=== PATIENT | female | born 1990 | race Caucasian/White ===

== ENCOUNTER → 2016-11-23 | Outpatient (CLI) | payer BC ==
[2016-11-23 14:45] LABS: Basophils # (A) 0.1 k/uL (0-0.2); Basophils % (A) 1 %; CH 29.2; Eosinophils # (A) 0.3 k/uL (0-0.7); Eosinophils % (A) 5 %; HCT 42.9 % (34.0-46.0); HDW 2.61; HGB 14.2 gm/dL (11.4-16.0); Luc # (Auto) 0.11; Luc % (Auto) 2; Lymphocytes # (A) 2.9 k/uL (1.0-4.8); Lymphocytes % (A) 45 %; MCH 29.4 pg (25.0-35.0); MCHC 33.1 g/dL (31.0-37.0); MCV 88.9 fL (80.0-100.0); Monocytes # (A) 0.4 k/uL (0-1.0); Monocytes % (A) 6 %; Neutrophils # (A) 2.8 k/uL (1.3-7.7); Neutrophils % (A) 43 %; RBC 4.82 m/uL (3.80-5.40); RDW 12.6 % (11.5-15.5); WBC 6.5 k/uL (3.8-10.6); WBC (Perox) 6.96
== END | disposition home or self-care (01) ==
LOC: LABPAT 14:06
PROVIDERS: ATTEND Obstetrics & Gynecology
DX: Z01.812 Encounter for preprocedural laboratory examination (principal); N84.0 Polyp of corpus uteri
CPT/HCPCS: 85025

== ENCOUNTER 2016-11-29 09:14 | Day surgery (SDC) | payer BC ==
[2016-11-28 10:28] VITALS: BMI 38.9
--- NOTE | 2016-11-28 12:33 | HP ---
This is a 25 -year-old white female 2, para 1, 0, 1, 1 who received her last Depo Provera injection in May of this year. The patient and her are wishing conception at this time. She states that she has had continued vaginal bleeding and spotting every day since May. She states there is no pelvic cramping. No dyspareunia. No other issues or symptoms. She is on the vitamin daily. Sonogram was performed at the office, at which time, endometrial polyps were noted. Ovaries appeared sonographically within normal limits. They did contain multiple small cystic areas consistent with PCOF. At this time, the patient is wishing hysteroscopy, D&C, polypectomy to clear the uterine cavity in preparation for conception. Current medications: Zoloft 50 mg daily. Review of systems is otherwise negative. Past medical history is significant for polycystic ovarian syndrome, history of IUFD of twins in March 2016 and abnormal PAP smear evaluated colposcopically. Past surgical history: Colposcopy in 2012. Finger surgery of the index finger for a benign growth. FAMILY HISTORY: Significant for heart issues, hypertension, diabetes, prostate cancer. 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 She is . She smokes three quarter packs of tobacco daily. The patient denies alcohol or drug use. Reproductive history: Vaginal delivery 2011, live born female infant; IUFD twins at 19 weeks gestation, March 2016. On examination, this is a pleasant young female, she is 5 foot 3 inches, 223 pounds, BMI 39.5. Blood pressure 112/64. HEENT: exam reveals no thyromegaly. Good range of motion. Normal dentition. The breasts are bilaterally symmetric to inspection, no skin dimpling, nipple discharge or axillary adenopathy or discernible lesions or masses. Chest is clear to auscultation in all damian anterior and posterior. The cardiac exam reveals regular rate and rhythm with no murmur, click or rub. The abdomen is soft, moderately obese, no organosplenomegaly or masses. No CVA tenderness. Extremities reveals normal range of motion. Good peripheral pulses. On pelvic exam reveals normal appearing external genitalia. Cervix is multiparous. Pap smear is up to date and normal. Uterus is mobile, slightly enlarged, anteverted, slightly tender. Adnexa are negative bilaterally. IMPRESSION: Sonographic evidence of endometrial polyps with polymenorrhea since last Depo Provera injection, May 2016. PLAN: We will proceed with hysteroscopy, D&C, polypectomy. The patient is aware of the risks, benefits and alternatives of this plan. We have discussed the risks to be but not be exclusive of bleeding, infection, perforation, or damage to the cervix, uterus, bladder or bowel. The risks of anesthesia are also reviewed including aspiration, nerve damage or even . The patient understands and accepts these risks as outlined. OLEKSANDR
[~2016-11-29 09:14] MED LIST: DEXAMETHASONE SOD PHOSPHATE 10 MG/ML 1 ML VIAL IV ONE; HYDROmorphone 1 MG/ML 1 ML SYRINGE IVP PRN; MIDAZOLAM 2 MG/2 ML VIAL IV PRN; ONDANSETRON 4 MG/2 ML VIAL IVP ONE; Pre Op ABX Message 1 EACH MISC MISCELLANE ONE; SCOPOLAMINE 1.5MG/72HR PATCH TRANSDERM ONE
[2016-11-29] MEDS ORDERED: LIDOCAINE 1% 20 ML VIAL (10MG/ML) FOR IV START INTRADERMA ONE (10:18)
[2016-11-29] MEDS: LACTATED RINGERS 1,000 ML IV SCH ×2 (10:20→11:00)
[2016-11-29] MEDS ORDERED: SUCCINYLCHOLINE CHLORIDE 100 MG/5 ML SYR IV ONE (11:01)
[2016-11-29] MEDS ORDERED: KETOROLAC 30 MG/ML 1 ML VIAL ONE (11:01)
[2016-11-29] MEDS ORDERED: fentaNYL (PF) 50 MCG/ML 2 ML AMP ONE (11:01)
[2016-11-29] MEDS ORDERED: MIDAZOLAM 2 MG/2 ML VIAL ONE (11:01)
[2016-11-29] MEDS ORDERED: PROPOFOL 10 MG/ML 20 ML VIAL IV ONE (11:01)
[2016-11-29] MEDS ORDERED: LIDOCAINE 1% INJ 10MG/ML (20 ML MDV) ONE (11:01)
--- NOTE | 2016-11-29 11:25 | P.OP ---
Date of Procedure: 11/29/16 Preoperative Diagnosis: Polymenorrhea, endometrial polyps Postoperative Diagnosis: Pathology pending Procedure(s) Performed: Hysteroscopy, D&C, polypectomy Implants: Anesthesia: GETA Surgeon: Estefania Dave Estimated Blood Loss (ml): 10 IV fluids (ml): 400 Urine output (ml): 200 Pathology: other (Endometrial curettings and polyps) Condition: stable Disposition: PACU Indications for Procedure: Operative Findings: Description of Procedure: Patient is brought to the [facility] and suite and placed in the dorsal lithotomy position. General anesthetic is administered without difficulty. The cervix vagina perineum and lower abdomen are all prepped and draped in usual sterile fashion. Beta hCG is negative. Antibiotics are not deemed necessary. The appropriate timeout is performed to assure proper patient and procedural identification. Examination under anesthesia reveals a small retroverted uterus , negative adnexa bilaterally. Bladder is drained for 200 mL of clear yellow urine. Weighted speculum was placed into the vagina. Anterior lip of the cervix is grasped with a double- tooth tenaculum. Uterus sounds to a depth of 8 and half centimeters in the retroverted position. Cervix is gently and systematically dilated using Hanks dilators. Hysteroscope was introduced, fluid is infused. The cavity is distended and inspected. Proliferative shaggy-appearing tissue is noted along with small polyps. Hysteroscope was removed. A medium sharp curette is used and the curettage is performed in all 4 quadrants. Small polypoid tissue was produced. The polyp forceps are then introduced to assure no remaining tissue is left in situ. Cervix is clean and dry upon completion of procedure. All sponge needle and instrument counts are correct. Toradol is given prior to leaving the operative room. Patient is brought back to recovery room in very good condition with stable vital signs including pulse of 63, 98% O2 sat, 110/64. Patient will follow-up with me in the office in 2 weeks.
[2016-11-29 11:50] VITALS: TEMP 97
[2016-11-29 12:29] VITALS: BP 99/53; PULSE 74; RESP 18
== END 2016-11-29 12:45 | disposition home or self-care (01) ==
LOC: OR 09:14
PROVIDERS: ATTEND Obstetrics & Gynecology
DX: N84.0 Polyp of corpus uteri (principal); N92.0 Excessive and frequent menstruation with regular cycle; N85.4 Malposition of uterus; E28.2 Polycystic ovarian syndrome; F17.200 Nicotine dependence, unspecified, uncomplicated; K21.9 Gastro-esophageal reflux disease without esophagitis; F39 Unspecified mood [affective] disorder; Z79.899 Other long term (current) drug therapy
CPT/HCPCS: 81025; 88305; 58558; J2250; J1100; J2405; J2001; J3010; J1885; J0330; J2704

== ENCOUNTER 2018-10-08 06:03 | Inpatient (IN) | payer BC, OTHER ==
[2018-10-08] MEDS ORDERED: TERBUTALINE 1 MG/ML VIAL SQ PRN (06:17)
[2018-10-08] MEDS ORDERED: METHYLERGONOVINE 0.2 MG/ML 1 ML AMP IM PRN (06:17)
[2018-10-08] MEDS ORDERED: OXYTOCIN 10 UNIT/ML 1 ML VIAL IM PRN (06:17)
[2018-10-08] MEDS ORDERED: CARBOPROST TROMETHAMINE 250 MCG/ML 1 ML AMP IM PRN (06:17)
[2018-10-08] MEDS ORDERED: LIDOCAINE 0.5% (PF) 5 MG/ML (50 ML SDV) SQ PRN (06:17)
[2018-10-08] MEDS ORDERED: PENICILLIN G POTASSIUM 5,000,000 UNIT in DEXTROSE 5% IN WATER 100 ML IVPB STA ×2 (06:20)
[2018-10-08 06:26] VITALS: BMI 37.5
[2018-10-08] MEDS ORDERED: OXYTOCIN 30 UNITS/500 ML NS 30 UNIT in SALINE 1 500ML.BAG IV SCH (06:30)
[2018-10-08] MEDS: LACTATED RINGERS 1,000 ML IV SCH ×2 (06:41→19:43)
[2018-10-08 06:53] LABS: Basophils % (A) 0 %; Eosinophils # (A) 0.1 k/uL (0-0.7); Eosinophils % (A) 2 %; HCT 35.8 % (34.0-46.0); HGB 11.7 gm/dL (11.4-16.0); Lymphocytes # (A) 2.9 k/uL (1.0-4.8); Lymphocytes % (A) 35 %; MCH 27.5 pg (25.0-35.0); MCHC 32.7 g/dL (31.0-37.0); MCV 83.9 fL (80.0-100.0); Mean Platelet Volume 7.6; Monocytes # (A) 0.5 k/uL (0-1.0); Monocytes % (A) 6 %; Neutrophils # (A) 4.5 k/uL (1.3-7.7); Neutrophils % (A) 55 %; Platelet Count 271 k/uL (150-450); RBC 4.27 m/uL (3.80-5.40); WBC 8.2 k/uL (3.8-10.6)
[2018-10-08 06:56] LABS: Glucose,Whole Blood 85 mg/dL (75-99)
--- NOTE | 2018-10-08 07:55 | P.HPOB ---
History of Present Illness H&P Date: 10/08/18 Chief Complaint: Here for elective induction of labor, suspected large for g estational age f This is a 27-year-old white female 3 para 1011 EDC 10/14/2018 at 39 and one sevenths weeks' gestation. Patient presents for induction of labor with suspected large for gestational age fetus, recent ultrasound confirming 95th percentile. Blood sugars have been reasonably well managed at home with diet. Patient denies uterine contractions or fluid leakage. Fetus is been active throughout the . Past medical history is significant for polycystic ovarian syndrome, and history of IUFD of twins in 2016. Past surgical history colposcopy, hysteroscopy D and C and polypectomy, and index finger surgery. ALLERGIES none known. Family history significant for myocardial infarction, hypertension, diabetes, prostate cancer. Social history is significant for current one half pack per day tobacco smoking, negative alcohol or drug use. Patient is and works as a medical equipment sales. Obstetric history is significant for blood type O positive, rubella status nonimmune. Urine culture, hepatitis B surface antigen, HIV testing, gonorrhea and chlamydia cultures all negative. One-hour Glucola 186, three-hour GTT consistent with gestational diabetes. Positive group B strep cultures. Current medications vitamins. On exam this is a pleasant white female, 5 foot 2 inches, 205 pounds, blood pressure 118/79, vital signs otherwise stable. General physical exam is within normal limits. Cervix is 3 cm dilated, 70-80% effaced, -2 station, vertex presentation. heart rate is consistent with reactive NST. Artificial amniorrhexis reveals clear fluid. Impression: 39 and one sevenths weeks intrauterine , large for gestational age fetus, gestational diabetes with good blood sugar control via diet, positive group B strep cultures. Impression: Penicillin G per hospital protocol, first dose has already been received. Oxytocin per hospital protocol. Continue close maternal and surveillance. Anticipate normal spontaneous vaginal delivery. Review of Systems Constitutional: Reports as per HPI Past Medical History Past Medical History: No Reported History Additional Past Medical History / Comment(s): gestational diabetes 07/2018 History of Any Multi-Drug Resistant Organisms: None Reported Additional Past Surgical History / Comment(s): left index finger benign tumor removed. D&C- 2016 Past Anesthesia/Blood Transfusion Reactions: No Reported Reaction Past Psychological History: Anxiety, Depression, PTSD Additional Psychological History / Comment(s): hx anxiety/depression from loss o f twins at 20 week gestation Smoking Status: Current every day smoker Past Alcohol Use History: None Reported Past Drug Use History: None Reported - Past Family History Father History Unknown: Yes Family Medical History: Coronary Artery Disease (CAD), Diabetes Mellitus, Hypertension, Sleep Apnea/CPAP/BIPAP Medications and Allergies Home Medications Medication Instructions Recorded Confirmed Type Pnv,Calcium 72/Iron/Folic Acid 1 tab PO DAILY 08/07/18 10/08/18 History [ Plus Tablet] Allergies Allergy/AdvReac Type Severity Reaction Status Date / Time No Known Allergies Allergy Verified 10/08/18 06:17 Exam Vital Signs Temp Pulse Resp BP 10/08/18 06:05 96.2 F L 92 16 118/79 Intake and Output 10/07/18 10/08/18 10/08/18 22:59 06:59 14:59 Other: Weight 92.986 kg See dictation under HPI please Results Result Diagrams: 10/08/18 06:35 Assessment and Plan Assessment: 39 and one sevenths weeks intrauterine , gestational diabetic with good blood sugar control, positive group B strep cultures, suspected large for gestational age fetus, here for elective induction of labor, all signs reassuring. Plan: Continue oxytocin augmentation per hospital protocol. Continue close maternal and surveillance. Penicillin G per prophylaxis protocol. Anticipate normal spontaneous vaginal delivery. Time with Patient: Less than 30
[2018-10-08] MEDS: BUTORPHANOL 1 MG/ML 1 ML VIAL IV PRN ×2 (10:36→14:56)
[2018-10-08] MEDS: PENICILLIN G POTASSIUM 2,500,000 UNIT in DEXTROSE 5% IN WATER 100 ML IVPB SCH ×6 (10:56→19:38)
[2018-10-08] MEDS ORDERED: diphenhydrAMINE 50 MG/ML 1 ML VIAL IVP PRN ×2 (15:34)
[2018-10-08] MEDS ORDERED: HYDROCORTISONE 2.5% RECTAL CREAM 30 GM TUBE RECTAL PRN (15:34)
[2018-10-08] MEDS ORDERED: WITCH HAZEL 1 EACH MED..PAD TOPICAL PRN (15:34)
[2018-10-08] MEDS ORDERED: diphenhydrAMINE 25 MG CAP PO PRN (15:34)
[2018-10-08] MEDS ORDERED: diphenhydrAMINE 50 MG CAP PO PRN (15:34)
[2018-10-08] MEDS ORDERED: IBUPROFEN 600 MG TAB PO PRN (15:34)
[2018-10-08] MEDS ORDERED: LANOLIN CREAM 5 GM TUBE TOPICAL PRN (15:34)
[2018-10-08] MEDS ORDERED: ACETAMINOPHEN TAB 325 MG TAB PO PRN (15:34)
[2018-10-08] MEDS ORDERED: SIMETHICONE 80 MG CHEWABLE PO PRN (15:34)
[2018-10-08] MEDS ORDERED: ZOLPIDEM 5 MG TAB PO PRN (15:34)
[2018-10-08] MEDS ORDERED: BENZOCAINE/MENTHOL SPRAY 1 GM/SPRAY AEROSOL TOPICAL PRN (15:34)
--- NOTE | 2018-10-08 15:34 | P.PROBDLV ---
Vaginal Delivery Note - . Vaginal Delivery Note: This is a 27-year-old white female 3 para 1011 EDC 10/14/2018 at 39 and one sevenths weeks' gestation. Patient presented today for induction for gestational diabetes, suspected large for gestational age infant, and favorable multiparous cervix. [place] strep cultures were positive. Please see admitting history and physical for details. Artificial amniorrhexis was performed. Admitting blood sugar was 85. Fluid was clear on amniorrhexis. Oxytocin was started and titrated per hospital protocol, along with penicillin G prophylaxis. Patient received 2 doses of penicillin G. She requested and received Stadol 2, declining offer for epidural. She became completely dilated and had a strong urge to push. The perineal body was prepped and draped in usual sterile fashion. With excellent maternal expulsive efforts the infant's head delivered occiput an terior. He restituted accordingly. There was no nuchal cord noted. The left or anterior shoulder was gently delivered from underneath the pubic symphysis at which time the oropharynx, nasopharynx, and external nares were all bulb suctioned on the perineal body. Patient was officially delivered of a liveborn male at 1518 hours. The umbilical cord was doubly clamped and ligated, he was handed to waiting nurses for evaluation where scores of 9 and 9 at one and 5 minutes respectively were given. The uterus is then massaged. Placenta delivered spontaneously, it was inspected and noted to be intact with trivascular cord at 1521 hours. Inspection of the cervix, vagina, perineum, periurethral, and perirectal areas revealed no lacerations and no defects. Patient is requesting circumcision for her infant son. Total estimate a blood loss 200 mL's. All sponge needle and enhancement counts are correct at the end of the procedure. Infant weighs 7 lbs. 14 oz, or 3580g.
[2018-10-08] MEDS ORDERED: OXYTOCIN 20 UNITS/1000 ML NS 1,000 ML IV SCH (15:45)
[2018-10-08] MEDS ORDERED: MEASLES-MUMPS-RUBELLA VACC/PF 12,500 UNIT/0.5 ML VIAL SQ ONE (19:42)
[2018-10-08 21:55] VITALS: RESP 16
[2018-10-09] MEDS: SENNOSIDES-DOCUSATE SODIUM 1 EACH TAB PO SCH ×2 (03:44→07:56)
[2018-10-09 06:05] LABS: Basophils % (A) 0 %; Eosinophils # (A) 0.1 k/uL (0-0.7); Eosinophils % (A) 1 %; HGB 10.8 gm/dL (11.4-16.0); Hypochromasia Slight; Lymphocytes # (A) 3.1 k/uL (1.0-4.8); Lymphocytes % (A) 30 %; MCH 27.9 pg (25.0-35.0); MCHC 32.8 g/dL (31.0-37.0); MCV 85.1 fL (80.0-100.0); Mean Platelet Volume 7.6; Monocytes # (A) 0.6 k/uL (0-1.0); Monocytes % (A) 6 %; Neutrophils # (A) 6.2 k/uL (1.3-7.7); Neutrophils % (A) 61 %; Platelet Count 262 k/uL (150-450); RBC 3.88 m/uL (3.80-5.40); RDW 14.4 % (11.5-15.5); WBC 10.2 k/uL (3.8-10.6)
[2018-10-09] MEDS ORDERED: ROPIVACAINE 100 MG, fentaNYL (PF) 200 MCG in SODIUM CHLORIDE 0.9% 76 ML EPIDURAL ONE (06:31)
--- NOTE | 2018-10-09 06:57 | P.DS ---
Providers Date of admission: 10/08/18 06:03 Expected date of discharge: 10/09/18 Attending physician: Estefania Dave Primary care physician: Stated None Hospital Course: This is a 27-year-old white female 3 para 1011 EDC 10/14/2018 at 39 and one sevenths weeks' gestation. She presented for induction with favorable multiparous cervix. Her was remarkable for gestational diabetes, diet controlled. Blood sugar on admission 85. Rubella status nonimmune, group B strep cultures positive. Please see dictated history and physical for details. Penicillin she was given per hospital protocol, 2 doses received. Clear fluid was noted on artificial amniorrhexis. Patient went on to deliver a liveborn male infant with scores of 9 and 9 at one and 5 minutes respectively. Infant weighed 7 lbs. 14 oz. or 3580 g. Estimated blood loss 200 mL's. No suturing was deemed necessary. Please see my dictated delivery note for details. This morning the patient is doing well. She is voiding, ambulating and passing flatus without difficulty. Vital signs are stable and she is afebrile. Fundus is firm and in the midline, symmetric and 18 week size. Extremities are negative for edema. [place] is doing well, circumcision has been performed. Patient is judged to be in very good condition for discharge home. She will follow-up with me in the office in 6 weeks. I have given her prescription for a double electric breast pump. She will use [id number] Advil or Aleve, or Motrin products as needed for pain. She will call me with any fevers shakes or chills, foul smelling or copious lochia, with the passage of large blood clots, with any pain not alleviated by [id number] products, or indeed with any concerns. [place] will follow-up with plasterer spot as per recommendations. Patient Condition at Discharge: Good Plan - Discharge Summary Discharge Rx Participant: No New Discharge Prescriptions: No Action Pnv,Calcium 72/Iron/Folic Acid [ Plus Tablet] 1 tab PO DAILY Discharge Medication List Pnv,Calcium 72/Iron/Folic Acid [ Plus Tablet] 1 tab PO DAILY 08/07/18 [History] Follow up Appointment(s)/Referral(s): Estefania Dave MD [STAFF PHYSICIAN] - 6 Weeks Discharge Disposition: HOME SELF-CARE
[2018-10-09 07:49] VITALS: BP 102/52; PULSE 60; TEMP 97.8
== END 2018-10-09 15:44 | disposition home or self-care (01) | DRG 807 ==
LOC: 4FBP 06:03
PROVIDERS: ADMIT Obstetrics & Gynecology; ATTEND Obstetrics & Gynecology
PROC: 10E0XZZ Delivery of Products of Conception, External Approach (ICD-10-PCS; principal; 2018-10-08)
PROC: 10907ZC Drainage of Amniotic Fluid, Therapeutic from Products of Conception, Via Natural or Artificial Opening (ICD-10-PCS; 2018-10-08)
PROC: 3E033VJ Introduction of Other Hormone into Peripheral Vein, Percutaneous Approach (ICD-10-PCS; 2018-10-08)
DX: O24.420 Gestational diabetes mellitus in childbirth, diet controlled (principal); Z37.0 Single live birth; O99.344 Other mental disorders complicating childbirth; O99.334 Smoking (tobacco) complicating childbirth; F17.210 Nicotine dependence, cigarettes, uncomplicated; F43.10 Post-traumatic stress disorder, unspecified; F32.9 Major depressive disorder, single episode, unspecified; F41.9 Anxiety disorder, unspecified; O99.284 Endocrine, nutritional and metabolic diseases complicating childbirth; E28.2 Polycystic ovarian syndrome; O99.824 Streptococcus B carrier state complicating childbirth; Z3A.39 39 weeks gestation of pregnancy; Z82.49 Family history of ischemic heart disease and other diseases of the circulatory system; Z83.3 Family history of diabetes mellitus; Z80.42 Family history of malignant neoplasm of prostate
CPT/HCPCS: 85025; 86850; 86900; 86901; 90471; 90707